=== PATIENT | female | born 1970 | race Caucasian/White ===

== ENCOUNTER 2016-10-01 10:12 | Day surgery (SDC) | payer OTHER ==
[~2016-10-01 10:12] MED LIST: B COTAB3; BIRTH CONTROL; CALC600T34; CIPR500T2; CRANPOW2; LECIGRA; LUTEIN; NAPR500; NEUR100C; OXYC-360; REPLAX; TAB-TAB; ZOVI400T15
[2016-10-01 11:44] VITALS: BP 140/98; PULSE 68; RESP 14; TEMP 98; O2SAT 100
--- NOTE | 2016-10-01 13:03 | RADRPT ---
EXAM DATE/TIME: 10/01/2016 11:33 [place] COMPARISON: No previous studies available for comparison. INDICATIONS : Left popliteal cyst. MEDICAL HISTORY : Hypothyroidism. Arthritis. Migraines. SURGICAL HISTORY : Appendectomy. ENCOUNTER: Initial ACUITY: 4 - 6 months PAIN SCORE: 4/10 LOCATION: Left lower extremityknee FLUID: Total volume of 3 cc of cloudy, red fluid was removed. Fluid was discarded. Post procedure scanning reveals no hematoma or other complication. TECHNIQUE: 1. Ultrasound guidance for needle aspiration. 2. Aspiration. The risks, benefits, and alternatives to ultrasound guided aspiration of the popliteal cyst were expl ained to the patient in detail including the risk of bleeding and infection. Written and verbal info rmed consent was obtained. With the patient on the ultrasound table, ultrasound imaging was used to select the most appropriate approach for aspiration. There is a septated cystic lesion in the popliteal fossa measuring approxim ately 2.7 x 1.8 x 1.4 cm. The popliteal artery and vein but this structure and more superficially and laterally there are large veins present. Overlying skin was prepped and draped in the usual sterile fashion and with local anesthetic. A 22 and 20 gauge needle were placed into the fluid collection. I t was only able to drain approximately 3 cc of clear viscous material. I believe the fluid is too thi ck for percutaneous drainage. Potentially a large catheter placed into the collection could drain the material, however, the popliteal artery and popliteal veins are draped around the cyst. CONCLUSION: Uncomplicated ultrasound guided aspiration of a left popliteal cyst. I was only able to aspirate appr oximately 3 cc of very viscous material. Miguel Angel Steve MD on October 01, 2016 at 12:58 Board Certified Radiologist. This report was verified electronically.
[2016-10-01] MEDS ORDERED: LIDOCAINE HCL 1% PF 30 ML VIAL ONE (16:23)
== END 2016-10-01 14:13 | disposition home or self-care (01) ==
LOC: HRAD 10:12 → HRIP 10:20 → HRAD 14:13
PROVIDERS: ATTEND Surgery
DX: M71.22 Synovial cyst of popliteal space [Baker], left knee (principal); E03.9 Hypothyroidism, unspecified; G43.909 Migraine, unspecified, not intractable, without status migrainosus
CPT/HCPCS: 10160; 76942